=== PATIENT | female | born 1995 | race Native Hawaiian/Other Pacific Islander ===

== ENCOUNTER 2018-08-17 12:24 | Emergency (ER) | payer OTHER ==
[~2018-08-17] VITALS: Ht 165.1 cm; Wt 94.8 kg
[2018-08-17 13:40] VITALS: BP 190/100; TEMP 98
== END 2018-08-17 13:45 | disposition home or self-care (01) ==
LOC: ED 12:24
DX: R51 Headache (principal); S09.90XA Unspecified injury of head, initial encounter
CPT/HCPCS: 99282